=== PATIENT | male | born 1945 | race African-American/Black ===

== ENCOUNTER 2016-07-12 10:20 | Emergency (ER) | payer OTHER ==
[2016-07-12 10:34] VITALS: BP 146/71; PULSE 74; TEMP 98.8; BMI 29.6
--- NOTE | 2016-07-12 10:34 | PDOC ---
History of Present Illness - General Chief Complaint: Pain Stated Complaint: RUL PAIN Time Seen by Provider: 07/12/16 10:29 History Source: Patient Exam Limitations: No Limitations - History of Present Illness Initial Comments: 07/12/16 10:35 The patient is a 70-year-old male with a history of hypertension who presents to the emergency Department with complaints of right knee pain after a fall. The patient states that he was at work and stepped on a piece of board and his left leg went through the board. When he was trying to get his left leg out of the hole he felt a pop in his right knee. The patient has difficulty raising his leg off of the stretcher and bending his knee. The patient has no other injuries to other areas of his body. There was no head trauma or loss of consciousness. Past History - Travel Traveled outside of the country in the last 30 days: No Close contact w/someone who was outside of country & ill: No - Past Medical History Allergies/Adverse Reactions: Allergies Allergy/AdvReac Type Severity Reaction Status Date / Time No Known Allergies Allergy Verified 07/12/16 10:21 Home Medications: Ambulatory Orders Lisinopril [Prinivil] 20 mg PO DAILY 07/12/16 HTN: Yes Kidney Stones: Yes - Surgical History Appendectomy: Yes - Psycho/Social/Smoking Cessation Hx Anxiety: No Suicidal Ideation: No Smoking History: Former smoker Have you smoked in the past 12 months: No If you are a former smoker, when did you quit?: 2005 Information on smoking cessation initiated: No Hx Alcohol Use: No Drug/Substance Use Hx: No Substance Use Type: None Review of Systems - Review of Systems Able to Perform ROS?: Yes Is the patient limited German proficient: No Constitutional: No: Symptoms Reported HEENTM: No: Symptoms Reported Respiratory: No: Symptoms reported Cardiac (ROS): No: Symptoms Reported ABD/GI: No: Symptoms Reported : No: Symptoms Reported Musculoskeletal: Yes: See HPI Integumentary: No: Symptoms Reported Neurological: No: Symptoms reported *Physical Exam - Vital Signs Last Vital Signs Temp Pulse Resp BP Pulse Ox 98.8 F 74 20 146/71 98 07/12/16 10:20 07/12/16 10:20 07/12/16 10:20 07/12/16 10:20 07/12/16 10:20 - Physical Exam Comments: 07/12/16 10:37 GENERAL: Well developed, well nourished. Awake and alert. No acute distress. HEENT: Normocephalic, atraumatic. PERRLA, EOMI. No conjunctival pallor. Sclera are non- icteric. Moist mucous membranes. Oropharynx is clear. NECK: Supple. Full ROM. No JVD. No lymphadenopathy. MUSCULOSKELETAL Normal range of motion at all joints. No bony deformities or tenderness. No CVA tenderness. EXTREMITIES: LLE: There are no gross bony deformities. There is an small abrasion to the anterior aspect of the left distal tib/fib. The extremity in neuro-vascularly intact. RLE: There is swelling around the distal femur with a defect in the region of the quadriceps tendon. The patient is unable to lift his RLE off of the stretcher. There is no lateral or medial ligamentous laxity on exam. The extremity is neurovascularly intact. SKIN: Warm and dry. Normal capillary refill. No rashes. No jaundice. NEUROLOGICAL: Alert, awake, appropriate. Cranial nerves 2-12 intact. Grossly non-focal exam. PSYCHIATRIC: Cooperative. Good eye contact. Appropriate mood and affect. Medical Decision Making - Medical Decision Making 07/12/16 10:40 70 y/o male s/p fall with right knee pain. DDx includes but is not limited to: quadricepts tendon rupture, patellar injury, knee sprain, femur fx. Plan: 1. Plain films of the right femur, knee and tib/fib 2. The patient declines pain meds at this time 3. Orthopedics consultation pending results of the plain films 4. Observe and re-evaluate 07/12/16 12:10 Adendum: Plain films are negative. I have spoken to Dr Sanchez who recommends a bulky Key dressing, knee immobilizer and crutches. He can follow-up in Ortho tomorrow with Dr Ferro. Tylenol or motrin as needed for pain. *DC/Admit/Observation/Transfer Diagnosis at time of Disposition: Right knee pain - Discharge Dispostion Disposition: HOME Condition at time of disposition: Stable Admit: No - Patient Instructions Printed Discharge Instructions: DI for Quadriceps Strain Additional Instructions: Crutches for ambulation--do not bear weight on the extremity. You may follow-up with Dr Ferro (orthopedics) tomorrow. Please call for an appointment: [phone]. Tylenol or motrin as needed for the pain. Return to the ED if your symptoms persist, worsen or new symptoms arise.
== END 2016-07-12 12:31 | disposition home or self-care (01) ==
LOC: FER 10:20
DX: M25.561 Pain in right knee (principal); Z87.891 Personal history of nicotine dependence; I10 Essential (primary) hypertension; Z87.442 Personal history of urinary calculi; W13.3XXA Fall through floor, initial encounter; Y93.89 Activity, other specified; Y92.9 Unspecified place or not applicable; Y99.0 Civilian activity done for income or pay
CPT/HCPCS: 73552-TC-RT; 73562-TC-RT; 73590-TC-RT; 99283-25

== ENCOUNTER 2021-06-06 11:24 | Emergency (ER) | payer OTHER ==
[2021-06-06 11:39] VITALS: TEMP 99.1; BMI 31.1
[2021-06-06] MEDS ORDERED: METOCLOPRAMIDE HCL INJECTION 10 MG/2 ML VIAL IVPUSH ONE (11:47)
[2021-06-06] MEDS ORDERED: MECLIZINE HCL 25 MG TABLET (FP) PO ONE (11:48)
[2021-06-06] MEDS ORDERED: METOCLOPRAMIDE HCL INJECTION 10 MG/2 ML VIAL ONE (12:03)
[2021-06-06] MEDS ORDERED: MECLIZINE HCL 25 MG TABLET (FP) ONE (12:03)
[2021-06-06 12:49] LABS: BILIRUBIN,TOTAL 1.2 mg/dl (0.2-1); CALCIUM 9.6 mg/dl (8.5-10); TOT PROT 7.7 g/dl (6.4-8.2)
[2021-06-06 14:28] LABS: EOS % 3.6 % (0-4.5); HEMATOCRIT 45.3 % (35.4-49); HEMOGLOBIN 14.5 GM/dL (11.7-16.9); LYMPH % 28.7 % (8-40); MCH 26.7 pg (25.7-33.7); MCHC 31.9 g/dl (32.0-35.9); MEAN CELL VOLUME 83.6 fl (80-96); MONO % 11.3 % (3.8-10.2); NEUT % 55.4 % (42.8-82.8); PLATELET COUNT 248 10^3/uL (134-434); RBC 5.42 M/mm3 (4.00-5.60); RDW 14.7 % (11.9-15.9); WHITE BLOOD COUNT 4.7 K/mm3 (4.0-10.0)
[2021-06-06 14:57] VITALS: BP 162/79; PULSE 66
== END 2021-06-06 14:58 | disposition home or self-care (01) ==
LOC: FER 11:24
PROC: 3E033GC Introduction of Other Therapeutic Substance into Peripheral Vein, Percutaneous Approach (ICD-10-PCS; principal; 2021-06-06)
DX: R42 Dizziness and giddiness (principal)
CPT/HCPCS: 36415; 70450-TC; 71045-TC-FY; 80053; 82550; 82553; 84484; 85025; 93005; 99285-25

== ENCOUNTER 2022-06-29 09:52 | Emergency (ER) | payer OTHER ==
[2022-06-29 10:09] VITALS: BP 168/86; PULSE 64; RESP 16; TEMP 98; BMI 31.1
[2022-06-29 11:19] LABS: HEMATOCRIT 46.2 % (35.4-49); HEMOGLOBIN 15.5 G/dL (11.7-16.9); MCH 27.5 pg (25.7-33.7); MCHC 33.5 g/dl (32.0-35.9); MEAN CELL VOLUME 82.2 fl (80-96); PLATELET COUNT 193.9 10^3/uL (134-434); RBC 5.62 10^6/uL (4.00-5.60); RDW 14.4 % (11.9-15.9); WHITE BLOOD COUNT 5.3 10^3/uL (4.0-10.8)
[2022-06-29 11:39] LABS: BILIRUBIN,TOTAL 1.2 mg/dl (0.2-1); CALCIUM 9.3 mg/dl (8.5-10); CREATININE 1.1 mg/dl (0.55-1.3); MAGNESIUM 2.1 mg/dL (1.8-2.4); TOT PROT 7.8 g/dl (6.4-8.2)
[2022-06-29 12:41] LABS: PLATELET ESTIMATE ADEQUATE
== END 2022-06-29 12:52 | disposition home or self-care (01) ==
LOC: FER 09:52
DX: J01.90 Acute sinusitis, unspecified (principal); R53.82 Chronic fatigue, unspecified
CPT/HCPCS: 0241U-QW; 36415; 71046-TC-FY; 80053; 83735; 84484; 85025; 93005; 99285-25

== ENCOUNTER 2024-10-10 12:32 | Inpatient (IN) | payer OTHER ==
[2024-10-10] MEDS ORDERED: MECLIZINE HCL 25 MG TABLET (FP) ONE (12:57)
[2024-10-10 13:11] LABS: ABSOLUTE IMMATURE GRANULOCYTES 0.01 x10^3/uL (0.0-0.031); BASOPHILS # 0.04 x10^3/uL (0.01-0.08); EOSINOPHIL % 6.9 % (0.8-7.0); EOSINOPHILS # 0.42 x10^3/uL (0.04-0.54); HEMATOCRIT 45.4 % (40.1-51.0); HEMOGLOBIN 14.5 g/dL (13.7-17.5); MCHC 31.9 g/dl (32.3-36.5); MEAN CELL VOLUME 84.7 fl (79.0-92.2); MEAN PLT VOLUME 9.7 fl (9.4-12.4); MONOCYTE # 0.68 x10^3/uL (0.30-0.82); MONOCYTE % 11.2 % (5.3-12.2); PLATELET COUNT 267 x10^3/uL (163-337); RDW 13.8 % (12.2-16.6)
[2024-10-10] MEDS: MECLIZINE HCL 25 MG TABLET (FP) PO ONE (13:14)
[2024-10-10] MEDS: SODIUM CHLORIDE 1,000 ML IV STA (13:57)
[2024-10-10 14:12] LABS: INR 0.99 (0.83-1.09)
[2024-10-10 14:14] LABS: ACTIVATED PTT 32.1 SECONDS (25.2-36.5)
[2024-10-10 14:21] LABS: ALBUMIN 4.6 g/dl (3.4-5.0); ALK PHOS 63 U/L (45-117); ANION GAP 8 mmol/L (4-13); CALCIUM 9.7 mg/dl (8.5-10.1); CHLORIDE 99 mmol/L (98-107); CO2 32 mmol/L (21-32); CREATININE 1.1 mg/dl (0.6-1.3); GLUCOSE,RANDOM 111 mg/dl (74-106); POTASSIUM 4.1 mmol/L (3.5-5.1); SGOT/AST 20 U/L (15-37); SGPT/ALT 15 U/L (7-52); SODIUM 139 mmol/L (136-145); TOT PROT 8.1 g/dl (6.4-8.2)
[2024-10-10] MEDS ORDERED: MECLIZINE HCL 12.5 MG TABLET PO PRN (15:01)
[2024-10-10] MEDS ORDERED: LORazepam 2 MG/ML SDV VIAL ONE (15:07)
[2024-10-10 16:14] LABS: HIV INTERPRETATION NEGATIVE (NEGATIVE)
[2024-10-10 16:15] LABS: HCV DIAGNOSTIC IN-HOUSE W/RFLX NON-REACTIVE (NONREACTIVE)
[2024-10-10] MEDS: ASPIRIN 325 MG TABLET PO ONE (16:36)
[2024-10-10] MEDS: ATORVASTATIN CA 80 MG TABLET (FP) PO ONE (16:36)
[2024-10-10 18:39] VITALS: BMI 31.4
[2024-10-10 20:18] LABS: CHOLESTEROL 263 mg/dL (50-200); HDL CHOLESTEROL 49 mg/dL (40-60); LDL CHOLESTEROL (ONLY SJRH) 192 mg/dL (5-100)
[2024-10-10] MEDS: FLUTICASONE PROP 0.05% 16 GM NASAL SPRAY NS SCH (22:04)
[2024-10-11 09:06] VITALS: BP 125/64; PULSE 60; RESP 18; TEMP 98.4
[2024-10-11 09:10] LABS: BASOPHILS # 0.04 x10^3/uL (0.01-0.08); MEAN CELL VOLUME 84.9 fl (79.0-92.2)
[2024-10-11 09:28] LABS: EOSINOPHIL % 8.9 % (0.8-7.0); EOSINOPHILS # 0.51 x10^3/uL (0.04-0.54); HEMOGLOBIN 14.1 g/dL (13.7-17.5); MEAN PLT VOLUME 10.6 fl (9.4-12.4); MONOCYTE # 0.64 x10^3/uL (0.30-0.82); MONOCYTE % 11.2 % (5.3-12.2); PLATELET COUNT 254 x10^3/uL (163-337)
[2024-10-11 09:33] LABS: ALBUMIN 3.8 g/dl (3.4-5.0); BILIRUBIN,TOTAL 1.1 mg/dl (0.2-1); CALCIUM 9.1 mg/dl (8.5-10.1); CREATININE 1.1 mg/dl (0.6-1.3); MAGNESIUM 2.2 mg/dL (1.8-2.4); PHOSPHOROUS 3.5 (2.5-4.9); POTASSIUM 4.7 mmol/L (3.5-5.1); TOT PROT 6.8 g/dl (6.4-8.2)
[2024-10-11] MEDS: amLODIPine BESYLATE 5 MG TABLET (FP) PO SCH (10:00)
[2024-10-11] MEDS ORDERED: LISINOPRIL 10 MG TABLET PO SCH (10:00)
[2024-10-11] MEDS: ASPIRIN 81 MG CHEWABLE TABLETS PO SCH (10:01)
[2024-10-11 14:42] LABS: SYPHILIS W/ RPR CONF NON-REACTIVE (NONREACTIVE)
[2024-10-11] MEDS ORDERED: ATORVASTATIN CA 40 MG TABLET (FP) PO SCH (22:00)
== END 2024-10-11 13:00 | disposition home or self-care (01) | DRG 305 ==
LOC: FER 12:32 → FM/S 14:52
PROVIDERS: ADMIT Internal Medicine; ATTEND Internal Medicine
DX: I10 Essential (primary) hypertension (principal); E78.5 Hyperlipidemia, unspecified; H53.9 Unspecified visual disturbance; R25.1 Tremor, unspecified; R42 Dizziness and giddiness
CPT/HCPCS: 0241U-QW; 36415; 70450-TC; 70544-TC; 70547-TC; 70551-TC; 71046-TC-FY; 80053; 80061; 81003; 81015; 82607; 82746; 83036; 83735; 84100; 84439; 84443; 84484; 85025; 85610; 85730; 86140; 86618; 86780; 86803; 87086; 87389; 93005; 99285-25